=== PATIENT | male | born 1990 | race Caucasian/White ===

== ENCOUNTER 2016-11-27 10:16 | Emergency (ER) | payer MEDICAID ==
[~2016-11-27] VITALS: Ht 182.9 cm; Wt 70.0 kg
[2016-11-27 10:19] VITALS: Ht 182.9 cm; Wt 70.0 kg
[2016-11-27] MEDS ORDERED: IBUP-1542 PO (11:50)
[2016-11-27] MEDS ORDERED: CETI10CA PO (11:50)
[2016-11-27] MEDS ORDERED: D-ME473S18 PO (11:50)
--- NOTE | 2016-11-27 11:57 | ERD ---
ER Documentation Chief Complaint Date/Time DATE: 11/27/16 TIME: 11:51 Chief Complaint FLU LIKE SYMPTOMS RUNNY NOSE COUGH FEVER HPI Patient is a 26-year-old male who presents to the emergency department with rhinorrhea, dry cough, fever is 1 week. Patient states that his cough is dry in nature. Patient states that he has some chest tightness but denies any chest pain or shortness of breath. He denies taking any cough medication. Patient reports tactile fevers. He denies taking any antipyretics. He states he has been using Vicks with no relief of symptoms. Patient also has clear rhinorrhea. Patient denies any headache, body ache, abdominal pain, nausea, vomiting. No recent travel. No sick contacts. ROS All systems reviewed and are negative except as per history of present illness. Medications Home Meds Active Scripts Ibuprofen* (Motrin*) 600 Mg Tab, 600 MG PO Q6 for PAIN AND/OR INFLAMMATION, #30 TAB Prov:MUNIR MEDLEY PA-C 11/27/16 Cetirizine Hcl* (Zyrtec*) 10 Mg Capsule, 10 MG PO DAILY, #12 TAB.CHEW Prov:MUNIR MEDLEY PA-C 11/27/16 Dextromethorphan Hb-Promethazine Hcl (Promethazine DM Syrup) 473 Ml Syrup, 5 ML PO Q6H Y for COUGH, #4 OZ Prov:MUNIR MEDLEY PA-C 11/27/16 PMhx/Soc Medical and Surgical Hx: pt denies Medical Hx, pt denies Surgical Hx History of Surgery: No Anesthesia Reaction: No Hx Neurological Disorder: No Hx Respiratory Disorders: No Hx Cardiac Disorders: No Hx Psychiatric Problems: No Hx Miscellaneous Medical Probl: No Hx Alcohol Use: No Hx Substance Use: No Hx Tobacco Use: No FmHx Family History: No diabetes Physical Exam Vitals Vital Signs Date Time Temp Pulse Resp B/P Pulse Ox O2 Delivery O2 Flow Rate FiO2 11/27/16 10:19 98.8 93 18 132/65 97 Physical Exam GENERAL: Well-developed, well-nourished male. Appears in no acute distress. HEAD: Normocephalic, atraumatic. No deformities or ecchymosis. EYE: Pupils equal, round, and reactive to light. EOMs intact. No conjunctival erythema. No scleral icterus. No eye discharge. ENT: External ear without any masses or tenderness. Auditory canals clear bilaterally. TM visualized bilaterally, non-erythematous, non-bulging. Nasal mucosa pink with no discharge. Oropharynx is pink without any tonsillar erythema or exudates. No uvula deviation. No kissing tonsils. NECK: Supple. No lymphadenopathy or thyromegaly. No meningismus. Normal range of motion of the neck. LUNG: Clear to auscultation bilaterally. No rhonchi, wheezing, rales or coarse breath sounds. HEART: Regular rate and rhythm. No murmurs, rubs or gallops. EXTREMITIES: Equal pulses bilaterally. No peripheral clubbing, cyanosis or edema. No unilateral leg swelling. NEUROLOGIC: Alert and oriented to person, place and time. Moving all four extremities. 5/5 strength in all extremities. Normal speech. Steady gait. SKIN: Normal color. Warm and dry. No rashes or lesions. Procedures/MDM ED COURSE: The patient was stable throughout ED course. I kept the patient and/or family informed of laboratory and diagnostic imaging results throughout the ED course. DIAGNOSTIC IMAGING: Read by radiologist. DIAGNOSTIC IMAGING REPORT Patient: SELENA CARSON : 1990 Age: 26 Sex: M MR #: [id number] DOS: 11/27/16 1147 Ordering MD: MUNIR MEDLEY PA-C Location: [facility] Room/Bed: PROCEDURE: XR Chest. CLINICAL INDICATION: Cough for 1 week. TECHNIQUE: Single frontal view of the chest was obtained COMPARISON: No. FINDINGS: The soft tissues are normal. The bony elements are normal. The heart, left side aorta, cardiomediastinal silhouette, pulmonary vasculature and hilar structures are normal. The lungs are clear. The costophrenic angles are normal. IMPRESSION: 1. Normal chest x-ray. 2. No evidence of acute infiltrate. RPTAT:AAJJ Physician Rain Date Time Electronically viewed and signed by Physician Rain on 11/27/2016 12:25 JM/ CC: MUNIR MEDLEY PA-C MEDICAL DECISION MAKING: Patient is a 26-year-old male who presents with a dry cough, rhinorrhea and tactile fevers x1 week. Vital signs were reviewed. Patient was afebrile. Patient was not hypoxic. ENT exam was normal. Lung exam was normal. Chest x-ray was obtained. Chest x-ray was within normal limits. Given these findings, the patients presentation is most consistent with viral URI vs influenza. I have a much lower clinical concern for pneumonia, meningitis, sinusitis, otitis externa , acute otitis media, strep pharyngitis, epiglottitis or peritonsillar abscess. At this time, patient will be provided with symptomatic relief. Given the patient has had symptoms greater than 24 hours, Tamiflu will not be prescribed. PRESCRIPTIONS: Zyrtec, Promethazine cough syrup, ibuprofen DISCHARGE: At this time, patient is stable for discharge and outpatient management. Supportive therapies such as OTC throat lozenges, salt water gurgles, popsicles and jello discussed. I have instructed the patient to follow-up with his/her primary care physician in 1-2 days. I have instructed the patient to promptly return to the ER for any new or worsening symptoms including increased pain, swelling, fever, nausea, vomiting, weakness or difficulty breathing. The patient and/or family expressed understanding of and agreement with this plan. All questions were answered. Home care instructions were provided. . Departure Diagnosis: Primary Impression: Viral URI Condition: Stable Patient Instructions: Uri, Viral, No Abx (Adult) Referrals: [facility] YOU HAVE RECEIVED A MEDICAL SCREENING EXAM AND THE RESULTS INDICATE THAT YOU DO NOT HAVE A CONDITION THAT REQUIRES URGENT TREATMENT IN THE EMERGENCY DEPARTMENT. FURTHER EVALUATION AND TREATMENT OF YOUR CONDITION CAN WAIT UNTIL YOU ARE SEEN IN YOUR DOCTORS OFFICE WITHIN THE NEXT 1-2 DAYS. IT IS YOUR RESPONSIBILITY TO MAKE AN APPOINTMENT FOR FOLOW-UP CARE. IF YOU HAVE A PRIMARY DOCTOR --you should call your primary doctor and schedule an appointment IF YOU DO NOT HAVE A PRIMARY DOCTOR YOU CAN CALL OUR PHYSICIAN REFERRAL HOTLINE AT IF YOU CAN NOT AFFORD TO SEE A PHYSICIAN YOU CAN CHOSE FROM THE FOLLOWING [facility] [address] [facility]. [facility] [address] [facility] [address] [facility] [address] [facility] [address] [facility]. [facility] [address] [facility]. [facility] YOU HAVE RECEIVED A MEDICAL SCREENING EXAM AND THE RESULTS INDICATE THAT YOU DO NOT HAVE A CONDITION THAT REQUIRES URGENT TREATMENT IN THE EMERGENCY DEPARTMENT. FURTHER EVALUATION AND TREATMENT OF YOUR CONDITION CAN WAIT UNTIL YOU ARE SEEN IN YOUR DOCTORS OFFICE WITHIN THE NEXT 1-2 DAYS. IT IS YOUR RESPONSIBILITY TO MAKE AN APPOINTMENT FOR FOLOW-UP CARE. IF YOU HAVE A PRIMARY DOCTOR --you should call your primary doctor and schedule and appointment IF YOU DO NOT HAVE A PRIMARY DOCTOR YOU CAN CALL OUR PHYSICIAN REFERRAL HOTLINE AT . IF YOU CAN NOT AFFORD TO SEE A PHYSICIAN YOU CAN CHOSE FROM THE FOLLOWING [facility] INSTITUTIONS: [facility] [address] [place] [address] [facility] [address] [place] [address] [facility] [address] [place] [address] Additional Instructions: Llame al doctor MAANA y anatoliy juan BJ PARA DENTRO DE 1-2 KAMARA.Dgale a la secretaria que nosotros le instruimos hacer esta bj.Avise o llame si olivares condicin se empeora antes de la bj. Regresa aqui si peor o no mejor. MUNIR MEDLEY PA-C Nov 27, 2016 11:57
--- NOTE | 2016-11-27 12:26 | RADRPT ---
PROCEDURE: XR Chest. CLINICAL INDICATION: Cough for 1 week. TECHNIQUE: Single frontal view of the chest was obtained COMPARISON: No. FINDINGS: The soft tissues are normal. The bony elements are normal. The heart, left side aorta, cardiomedias tinal silhouette, pulmonary vasculature and hilar structures are normal. The lungs are clear. The co stophrenic angles are normal. IMPRESSION: 1. Normal chest x-ray. 2. No evidence of acute infiltrate. RPTAT:AAJJ Physician Rain Date Time Electronically viewed and signed by Micheal Fox Physician on 11/27/2016 12:25 SARA/
== END 2016-11-27 12:48 | disposition home or self-care (01) ==
LOC: FTE 10:16
DX: J06.9 Acute upper respiratory infection, unspecified (principal)
CPT/HCPCS: 71010; Z7502; 99283

== ENCOUNTER 2017-11-19 09:20 | Emergency (ER) | END 2017-11-19 11:55 | disposition home or self-care (01) ==

== ENCOUNTER 2017-11-26 08:56 | Emergency (ER) | END 2017-11-26 12:30 | disposition home or self-care (01) ==

== ENCOUNTER 2018-12-30 12:39 | Emergency (ER) | payer MEDICAID ==
[~2018-12-30] VITALS: Wt 92.7 kg
[~2018-12-30 12:39] MED LIST: ALBU18HF INHALATION; AZIT250T PO; BENZ-6 PO; CETI10CA PO; D-ME473S18 PO; FLUT16SP17 NASAL; IBUP-1542 PO; PRED20TA PO
[2018-12-30 12:44] VITALS: BP 139/64; PULSE 94; RESP 17
[2018-12-30] MEDS ORDERED: D-ME473S2 PO (14:54)
[2018-12-30] MEDS ORDERED: ALBU8.5H8 INH (14:54)
[2018-12-30] MEDS ORDERED: AZIT250T PO (14:54)
--- NOTE | 2018-12-30 14:59 | ERD ---
ER Documentation Chief Complaint Chief Complaint CONSTIPATION, RECTAL PAIN, NO BLEEDING, ALSO REPORTS COUGH HPI Patient is a Niuean-speaking 28-year-old male with history of asthma who pre sents the ED with complaints of an intermittent, productive cough and chest congestion ongoing for the past 1 month. Patient denies any known exacerbating or relieving factors. He denies any fevers. He does state his cough is worse at nighttime, and associated with nasal congestion. He reports some shortness of breath, but denies any wheezing or chest pain. He denies any fevers, chills, nausea, vomiting, abdominal pain. Contrary to triage notes as above, patient did not complain of any constipation or rectal pain during my interview. ROS All systems reviewed and are negative except as per history of present illness. Medications Home Meds Active Scripts Albuterol Sulfate* (Proair HFA*) 8.5 Gm Hfa.aer.ad, 2 PUFF INH Q4H PRN for WHEEZING AND SOB, #1 INHALER Prov:SAL EAGLEC 12/30/18 Dextromethorphan Hb-Promethazine Hcl* (Promethazine DM* Syrup) 473 Ml Syrup, 5 ML PO Q6 PRN for COUGH for 7 Days, ML Prov:SAL EAGLEC 12/30/18 Azithromycin* (Zithromax*) 250 Mg Tablet, 250 MG PO .ZPACK DIRECTED, #6 TAB TAKE 500 MG (2 TABS) THE FIRST DAY THEN 250 MG (1 TAB) DAYS 2-5 Prov:SAL EAGLEC 12/30/18 Benzonatate* (Tessalon Perle*) 100 Mg Capsule, 100 MG PO Q8H PRN for COUGH, #20 CAP Prov:MUNIR MEDLEYC 11/26/17 Azithromycin* (Zithromax*) 250 Mg Tablet, 250 MG PO .ZPACK DIRECTED, #6 TAB TAKE 500 MG (2 TABS) THE FIRST DAY THEN 250 MG (1 TAB) DAYS 2-5 Prov:MUNIR MEDLEYC 11/26/17 Cetirizine Hcl* (Zyrtec*) 10 Mg Capsule, 10 MG PO DAILY, #10 TAB.CHEW Prov:RUBIN LINARES PA-C 11/19/17 Fluticasone Propionate* (Fluticasone Propionate* Nasal) 50 Mcg/Addison - 16 Gm Addison.susp, 1 SPRAY NASAL BID, #1 BOTTLE TO EACH NOSTRIL Prov:RUBIN LINARES PA-C 11/19/17 Prednisone* (Prednisone*) 20 Mg Tab, 40 MG PO DAILY for 4 Days, TAB Prov:RUBIN LINARES PA-C 11/19/17 Albuterol Sulfate* (Ventolin HFA*) 18 Gm Hfa.aer.ad, 2 PUFF INHALATION Q4H, #1 INHALER Prov:RUBIN LINARES PA-C 11/19/17 Ibuprofen* (Motrin*) 600 Mg Tab, 600 MG PO Q6 for PAIN AND/OR INFLAMMATION, #30 TAB Prov:MUNIR MEDLEY PA-C 11/27/16 Cetirizine Hcl* (Zyrtec*) 10 Mg Capsule, 10 MG PO DAILY, #12 TAB.CHEW Prov:MUNIR MEDLEY PA-C 11/27/16 Dextromethorphan Hb-Promethazine Hcl (Promethazine DM Syrup) 473 Ml Syrup, 5 ML PO Q6H PRN for COUGH, #4 OZ Prov:MUNIR MEDLEY PA-C 11/27/16 Allergies Allergies: Coded Allergies: No Known Allergy (Unverified , 11/19/17) PMhx/Soc Medical and Surgical Hx: pt denies Medical Hx, pt denies Surgical Hx History of Surgery: No Anesthesia Reaction: No Hx Neurological Disorder: No Hx Respiratory Disorders: Yes (Asthma) Hx Cardiac Disorders: No Hx Psychiatric Problems: No Hx Miscellaneous Medical Probl: No Hx Alcohol Use: No Hx Substance Use: No Hx Tobacco Use: No Smoking Status: Never smoker Physical Exam Vitals Vital Signs Date Temp Pulse Resp B/P (MAP) Pulse Ox O2 O2 Flow FiO2 Time Delivery Rate 12/30/18 98.6 94 17 139/64 99 12:44 (89) Physical Exam Const: No acute distress Head: Atraumatic Eyes: Normal Conjunctiva ENT: Normal External Ears, Nose and Mouth. Neck: Full range of motion. No meningismus. Resp: Clear to auscultation bilaterally. No wheezes, rhonchi, rales. Cardio: Regular rate and rhythm, no murmurs Abd: Soft, non tender, non distended. Normal bowel sounds Skin: No petechiae or rashes Back: No midline or flank tenderness Ext: No cyanosis, or edema Neur: Awake and alert Psych: Normal Mood and Affect Procedures/MDM EMERGENT LABS AND DIAGNOSTIC STUDIES: Radiology Results as interpreted by Radiology: PROCEDURE: XR Chest. CLINICAL INDICATION: Cough TECHNIQUE: Single frontal view of the chest was obtained COMPARISON: 11/27/2016 FINDINGS: The heart and mediastinum are within normal limits. The lungs are clear. There is no pleural effusion or pneumothorax. RPTAT: AA IMPRESSION: No acute disease. .Alfred Villalta MD, MD Date Time Electronically viewed and signed by .Alfred Villalta MD, on 12/30/2018 14:34 Nursing Notes Reviewed. Previous Medical Records requested via the Electronic Health Record. EMERGENCY DEPARTMENT COURSE / MEDICAL DECISION MAKIN28 year old with hx of asthma presents with intermittent cough x 1 month. He is afebrile here and vital signs are stable. He has no signs of hypoxia or respiratory distress. Lungs sounds are clear. CXR negative for PNA or any other infiltrative process. Given duration of symptoms, will treat as bacterial bronchitis. He was given a prescription for Azithromax, ProAir and Promethazine DM. Pt is to follow up with his PCP in 2 days, otherwise return to the ED for any new or worsening pain. An spanish medical interpreter was used during his visit and pt understands and verbalizes understanding of my plan. Prior to discharge, patients vital signs have been reviewed SPECIALIST FOLLOW UP RECOMMENDED: None Patient has been advised to follow up with primary care in 1-2 days. Patient's blood pressure was elevated (>120/80) but appears stable without evidence of hypertension emergency or urgency. The patient was counseled about the risks of hypertension and urged to pursue outpatient monitoring and therapy within a week with their primary care physician Departure Diagnosis: Primary Impression: Cough Additional Impression: Bronchitis Condition: Stable Patient Instructions: Bronchitis, Antiobiotic Treatment (Adult) [facility] Usted se rose hecho un examen mdico de control que le indica que no est en juan condicin que requiera tratamiento urgente en el Departamento de Emergencia. Un estudio ms profundo y el tratamiento de olivares condicin pueden esperar sin ningn riesgo hasta que usted sea atendida/o en el consultorio de olivares mdico o juan clnica. Es responsabilidad suya arreglar juan carito para el seguimiento del vishnu. MANEJO DE CONDICIONES NO URGENTES EN EL FUTURO 1) Si usted tiene un mdico de atencin primaria: Usted debera llamar a olivares mdico de atencin primaria antes de venir al departamento de emergencia. Despus de las horas de consultorio, olivares doctor o olivares asociado/a est disponible por telfono. El mdico o enfermero de elvis en el servicio telefnico puede asesorarle por shalonda medio para atender el problema, o vishnu contrario se puede programar juan carito. 2) Si usted no tiene un mdico de atencin primaria: Llame al mdico o clnica de referencia que aparece abajo abisai las horas de consultorio para hacer juan carito para que le vean. CLINICAS: [facility] 762 [phone] [address] [facility] 762 [phone] [address] [facility] [phone] [address] [place] [id number] [phone] [facility] [phone] [address] [facility] [phone] [address] Additional Instructions: Thank you very much for allowing us to participate in your care. Your health and safety is our top priority at [facility]. Call your primary care doctor TOMORROW for an appointment during the next 2-4 days and bring all the information and medications prescribed. If the symptoms get worse and your provider is unavailable, return to the Emergency Department immediately. SAL EAGLE PA-C Dec 30, 2018 14:59
== END 2018-12-30 15:39 | disposition home or self-care (01) ==
LOC: FTE 12:39
DX: J40 Bronchitis, not specified as acute or chronic (principal)
CPT/HCPCS: 71045; Z7502

== ENCOUNTER 2019-03-13 10:26 | Emergency (ER) | payer MEDICAID ==
[~2019-03-13] VITALS: Ht 175.3 cm; Wt 90.9 kg
[~2019-03-13 10:26] MED LIST changes: +ALBU8.5H8 INH; +D-ME473S2 PO
[2019-03-13 10:53] VITALS: BP 130/81; PULSE 64; RESP 16; Ht 175.3 cm; Wt 90.9 kg
[2019-03-13] MEDS ORDERED: AZIT500T3 PO (11:45)
[2019-03-13] MEDS ORDERED: IBUP-1542 PO (11:45)
[2019-03-13] MEDS ORDERED: LORA10TA3 PO (11:45)
[2019-03-13] MEDS ORDERED: OXYC-279 PO (11:45)
[2019-03-13] MEDS ORDERED: IBUPROFEN 600 MG TAB PO ONE (12:00)
[2019-03-13] MEDS ORDERED: OXYCODONE/ACETAMINOPHEN (5/325) TAB PO ONE (12:00)
[2019-03-13] MEDS ORDERED: PENICILLIN G BENZ 1.2 MIL UNIT SYG IM ONE (12:00)
--- NOTE | 2019-03-13 12:31 | ERD ---
ER Documentation Chief Complaint Chief Complaint c/o sore throat for a couple of days HPI 28-year-old man complains of sore throat, nasal congestion, rhinorrhea, cough, tactile fever x4 to 5 days. Patient denies abdominal pain, no chest pain, no changes in his voice, no complaints of vomiting or diarrhea, no rash, no recent antibiotic use or recent travel ROS All systems reviewed and are negative except as per history of present illness. Medications Home Meds Active Scripts Loratadine* (Loratadine*) 10 Mg Tablet, 10 MG PO DAILY PRN for NASAL CONGESTION, #15 TAB Prov:JUSTINE HIGGINS MD 03/13/19 Azithromycin* (Zithromax*) 500 Mg Tablet, 500 MG PO DAILY for 5 Days, TAB Prov:JUSTINE HIGGINS MD 03/13/19 Ibuprofen* (Motrin*) 600 Mg Tab, 600 MG PO Q8 PRN for PAIN AND/OR INFLAMMATION, #30 TAB Prov:JUSTINE HIGGINS MD 03/13/19 Oxycodone HCl/Acetaminophen (Percocet 5-325 mg Tablet) 1 Each Tablet, 1 EACH PO TID PRN for PAIN LEVEL 6-10, #9 TAB Prov:JUSTINE HIGGINS MD 03/13/19 Albuterol Sulfate* (Proair HFA*) 8.5 Gm Hfa.aer.ad, 2 PUFF INH Q4H PRN for WHEEZING AND SOB, #1 INHALER Prov:SAL EAGLE-C 12/30/18 Dextromethorphan Hb-Promethazine Hcl* (Promethazine DM* Syrup) 473 Ml Syrup, 5 ML PO Q6 PRN for COUGH for 7 Days, ML Prov:SAL EAGLE PA-C 12/30/18 Azithromycin* (Zithromax*) 250 Mg Tablet, 250 MG PO .ZPACK DIRECTED, #6 TAB TAKE 500 MG (2 TABS) THE FIRST DAY THEN 250 MG (1 TAB) DAYS 2-5 Prov:SAL EAGLE-C 12/30/18 Benzonatate* (Tessalon Perle*) 100 Mg Capsule, 100 MG PO Q8H PRN for COUGH, #20 CAP Prov:MUNIR MEDLEY-C 11/26/17 Azithromycin* (Zithromax*) 250 Mg Tablet, 250 MG PO .ZPACK DIRECTED, #6 TAB TAKE 500 MG (2 TABS) THE FIRST DAY THEN 250 MG (1 TAB) DAYS 2-5 Prov:MUNIR MEDLEY PA-C 11/26/17 Cetirizine Hcl* (Zyrtec*) 10 Mg Capsule, 10 MG PO DAILY, #10 TAB.CHEW Prov:RUBIN LINARES PA-C 11/19/17 Fluticasone Propionate* (Fluticasone Propionate* Nasal) 50 Mcg/Lawton - 16 Gm [place].susp, 1 SPRAY NASAL BID, #1 BOTTLE TO EACH NOSTRIL Prov:RUBIN LINARES PA-C 11/19/17 Prednisone* (Prednisone*) 20 Mg Tab, 40 MG PO DAILY for 4 Days, TAB Prov:RUBIN LINARES PA-C 11/19/17 Albuterol Sulfate* (Ventolin HFA*) 18 Gm Hfa.aer.ad, 2 PUFF INHALATION Q4H, #1 INHALER Prov:RUBIN LINARES PA-C 11/19/17 Ibuprofen* (Motrin*) 600 Mg Tab, 600 MG PO Q6 for PAIN AND/OR INFLAMMATION, #30 TAB Prov:MUNIR MEDLEY PA-C 11/27/16 Cetirizine Hcl* (Zyrtec*) 10 Mg Capsule, 10 MG PO DAILY, #12 TAB.CHEW Prov:MUNIR MEDLEY PA-C 11/27/16 Dextromethorphan Hb-Promethazine Hcl (Promethazine DM Syrup) 473 Ml Syrup, 5 ML PO Q6H PRN for COUGH, #4 OZ Prov:MUNIR MEDLEY PA-C 11/27/16 Allergies Allergies: Coded Allergies: No Known Allergy (Unverified , 11/19/17) PMhx/Soc History of Surgery: No Anesthesia Reaction: No Hx Neurological Disorder: No Hx Respiratory Disorders: Yes (Asthma) Hx Cardiac Disorders: No Hx Psychiatric Problems: No Hx Miscellaneous Medical Probl: No Hx Alcohol Use: No Hx Substance Use: No Hx Tobacco Use: No Smoking Status: Never smoker FmHx Family History: No diabetes Physical Exam Vitals Vital Signs Date Temp Pulse Resp B/P (MAP) Pulse Ox O2 O2 Flow FiO2 Time Delivery Rate 03/13/19 99.4 64 16 130/81 96 10:53 (97) Physical Exam GENERAL: Well-developed, well-nourished, appears congested, febrile HEENT: Moist mucous membranes, pink conjunctiva, no cervical spine tenderness or step-off deformities, no goiter, no jaundice or icterus, positive nasal congestion and rhinorrhea with pharyngeal erythema bilaterally and exudates, uvula midline NEURO: Alert and oriented 3, cranial nerves II through XII intact bilaterally, pupils equal round reactive to light, no focal deficits or facial asymmetry, sensation intact distally Strength 5/5 in upper and lower extremities bilaterally CARDIAC: Regular rate and rhythm, no murmurs rubs or gallops LUNGS: Clear bilaterally no wheezing crackles or stridor Results 24 hrs Current Medications Medications Dose Sig/Minnie Start Time Status Last (Trade) Ordered Route PRN Stop Time Admin Dose Reason Admin Penicillin 1,200,000 ONCE ONCE 03/13/19 DC 03/13/19 G units IM 12:00 12:04 Benzathine 03/13/19 12:01 (Bicillin La) Ibuprofen 600 mg ONCE ONCE 03/13/19 DC 03/13/19 (Motrin) PO 12:00 12:04 03/13/19 12:01 Oxycodone/ 1 tab ONCE ONCE 03/13/19 DC 03/13/19 Acetaminophen PO 12:00 12:04 (Percocet 03/13/19 12:01 (5/ 325)) Procedures/MDM I suspect active strep pharyngitis and URI, I treated him here with penicillin G 1,200,000 units IM, ibuprofen 600 mg p.o., Percocet 1 tablet p.o. Differential diagnoses considered, included but not limited to acute coronary syndrome, pulmonary embolism, aortic dissection, abdominal aortic aneurysm, sepsis, stroke, meningitis, encephalitis, pneumonia, appendicitis, cholecystitis, bowel obstruction, pyelonephritis, nephrolithiasis, cystitis, as well as metabolic, hematologic, and electrolyte abnormalities. As well as abscess, cellulitis, fractures, and dislocations. Patient feels much better at this time, and vital signs are normal, symptoms have improved. I did give strict instructions to return to the ED if symptoms co ntinue or worsen, patient will otherwise follow-up with primary care physician. Patient understood instructions and agreed to plan. Disclaimer: Inadvertent spelling and grammatical errors are likely due to EHR/dictation software use and do not reflect on the overall quality of patient care. Also, please note that the electronic time recorded on this note does not necessarily reflect the actual time of the patient encounter. Departure Diagnosis: Primary Impression: Acute bronchitis Bronchitis organism: unspecified organism Qualified Codes: J20.9 - Acute bronchitis, unspecified Additional Impression: Strep pharyngitis Condition: Good Patient Instructions: Strep Throat, Bronchitis, Antiobiotic Treatment (Adult) JUSTINE HIGGINS MD March 13, 2019 12:31
== END 2019-03-13 12:17 | disposition home or self-care (01) ==
LOC: FTE 10:26
DX: J20.9 Acute bronchitis, unspecified (principal); J02.0 Streptococcal pharyngitis; J45.909 Unspecified asthma, uncomplicated
CPT/HCPCS: J0561; Z7502; Z7610; 99283

== ENCOUNTER 2019-04-03 10:14 | Emergency (ER) | payer MEDICAID ==
[~2019-04-03] VITALS: Ht 188 cm; Wt 90.5 kg
[~2019-04-03 10:14] MED LIST changes: +AZIT500T3 PO; +LORA10TA3 PO; +OXYC-279 PO
[2019-04-03 10:23] VITALS: Ht 188 cm; Wt 90.5 kg
[2019-04-03] MEDS ORDERED: IBUP800T48 PO (12:03)
[2019-04-03 12:11] VITALS: BP 115/74; PULSE 75; RESP 20
[2019-04-03] MEDS ORDERED: IBUPROFEN 800 MG TAB PO ONE (12:30)
--- NOTE | 2019-04-03 13:45 | ERD ---
ER Documentation Chief Complaint Chief Complaint RT finger pain after injury HPI 28-year-old male presenting with pain to his left fourth digit. Patient states that he hit his distal tip of the finger with a hammer. [id number]. Denies other medical problems. NKDA. Surgical history denies. Social history denies ROS All systems reviewed and are negative except as per history of present illness. Medications Home Meds Active Scripts Ibuprofen* (Motrin*) 800 Mg Tab, 800 MG PO Q6, #30 TAB Prov:FRANCY KEBEDE PA-C 04/03/19 Loratadine* (Loratadine*) 10 Mg Tablet, 10 MG PO DAILY PRN for NASAL CONGESTION, #15 TAB Prov:JUSTINE HIGGINS MD 03/13/19 Azithromycin* (Zithromax*) 500 Mg Tablet, 500 MG PO DAILY for 5 Days, TAB Prov:JUSTINE HIGGINS MD 03/13/19 Ibuprofen* (Motrin*) 600 Mg Tab, 600 MG PO Q8 PRN for PAIN AND/OR INFLAMMATION, #30 TAB Prov:JUSTINE HIGGINS MD 03/13/19 Oxycodone HCl/Acetaminophen (Percocet 5-325 mg Tablet) 1 Each Tablet, 1 EACH PO TID PRN for PAIN LEVEL 6-10, #9 TAB Prov:JUSTINE HIGGINS MD 03/13/19 Albuterol Sulfate* (Proair HFA*) 8.5 Gm Hfa.aer.ad, 2 PUFF INH Q4H PRN for WHEEZING AND SOB, #1 INHALER Prov:SAL EAGLEC 12/30/18 Dextromethorphan Hb-Promethazine Hcl* (Promethazine DM* Syrup) 473 Ml Syrup, 5 ML PO Q6 PRN for COUGH for 7 Days, ML Prov:SAL EAGLEC 12/30/18 Azithromycin* (Zithromax*) 250 Mg Tablet, 250 MG PO .ZPACK DIRECTED, #6 TAB TAKE 500 MG (2 TABS) THE FIRST DAY THEN 250 MG (1 TAB) DAYS 2-5 Prov:SAL EAGLEC 12/30/18 Benzonatate* (Tessalon Perle*) 100 Mg Capsule, 100 MG PO Q8H PRN for COUGH, #20 CAP Prov:MUNIR MEDLEY PA-C 11/26/17 Azithromycin* (Zithromax*) 250 Mg Tablet, 250 MG PO .ZPACK DIRECTED, #6 TAB TAKE 500 MG (2 TABS) THE FIRST DAY THEN 250 MG (1 TAB) DAYS 2-5 Prov:MUNIR MEDLEY PA-C 11/26/17 Cetirizine Hcl* (Zyrtec*) 10 Mg Capsule, 10 MG PO DAILY, #10 TAB.CHEW Prov:RUBIN LINARES PA-C 11/19/17 Fluticasone Propionate* (Fluticasone Propionate* Nasal) 50 Mcg/Jackson - 16 Gm Jackson.susp, 1 SPRAY NASAL BID, #1 BOTTLE TO EACH NOSTRIL Prov:RUBIN LINARES PA-C 11/19/17 Prednisone* (Prednisone*) 20 Mg Tab, 40 MG PO DAILY for 4 Days, TAB Prov:RUBIN LINARES PA-C 11/19/17 Albuterol Sulfate* (Ventolin HFA*) 18 Gm Hfa.aer.ad, 2 PUFF INHALATION Q4H, #1 INHALER Prov:RUBIN LINARES PA-C 11/19/17 Ibuprofen* (Motrin*) 600 Mg Tab, 600 MG PO Q6 for PAIN AND/OR INFLAMMATION, #30 TAB Prov:MUNIR MEDLEY PA-C 11/27/16 Cetirizine Hcl* (Zyrtec*) 10 Mg Capsule, 10 MG PO DAILY, #12 TAB.CHEW Prov:MUNIR MEDLEY PA-C 11/27/16 Dextromethorphan Hb-Promethazine Hcl (Promethazine DM Syrup) 473 Ml Syrup, 5 ML PO Q6H PRN for COUGH, #4 OZ Prov:MUNIR MEDLEY PA-C 11/27/16 Allergies Allergies: Coded Allergies: No Known Allergy (Unverified , 11/19/17) PMhx/Soc Medical and Surgical Hx: pt denies Medical Hx, pt denies Surgical Hx History of Surgery: No Anesthesia Reaction: No Hx Neurological Disorder: No Hx Respiratory Disorders: Yes (Asthma) Hx Cardiac Disorders: No Hx Psychiatric Problems: No Hx Miscellaneous Medical Probl: No Hx Alcohol Use: No Hx Substance Use: No Hx Tobacco Use: No Smoking Status: Never smoker FmHx Family History: No diabetes, No coronary disease, No other Physical Exam Vitals Vital Signs Date Temp Pulse Resp B/P (MAP) Pulse Ox O2 O2 Flow FiO2 Time Delivery Rate 04/03/19 98.0 75 20 115/74 99 Room Air 12:11 (88) 04/03/19 97.7 88 8 121/70 97 10:23 (87) Physical Exam GENERAL: The patient is well-appearing, well-nourished, in no acute distress CHEST: Clear to auscultation bilaterally. There are no rales, wheezes or rhonchi. HEART: Regular rate and rhythm. No murmurs, clicks, rubs or gallops. EXTREMITIES: Equal pulses bilaterally. There is no peripheral clubbing, cyanosis or edema. No focal swelling or erythema. Full range of motion. Grossly neurovascularly intact. NEUROLOGIC: Motor strength in all 4 extremities with 5 out of 5 strength. Sensation grossly intact. SKIN: Hematoma noted under the left nail. No laceration or abrasion noted of the finger. Results 24 hrs Current Medications Medications Dose Sig/Minnie Start Time Status Last (Trade) Ordered Route PRN Stop Time Admin Dose Reason Admin Ibuprofen 800 mg ONCE ONCE 04/03/19 DC 04/03/19 (Motrin) PO 12:30 12:11 04/03/19 12:30 Procedures/MDM DIAGNOSTIC IMAGING REPORT Patient: SELENA MICHELE : 1990 Age: 28 Sex: M MR #: [id number] DOS: 04/03/19 1044 Ordering MD: MELISSA KEBEDE PA-C Location: [facility] Room/Bed: PROCEDURE: XR left fourth digit CLINICAL INDICATION: Pain TECHNIQUE: AP, oblique and lateral views of the left fourth digit were obtained. COMPARISON: No prior studies are available for comparison. FINDINGS: There is no acute fracture in the fourth digit. There is a possible old fracture of the tip of the fifth digit. The joint spaces are preserved. Bone mineralization is normal. No significant soft tissue swelling is seen. RPTAT: AA IMPRESSION: No acute fracture or subluxation. Possible old fracture of the tip of the fifth digit. ER Course: Trepanation performed in the ED. Site reclean them bandage applied. MDM: 28-year-old male presenting with pain to the left ring finger. I have low suspicion for acute fracture dislocation. I have low suspicion for tendon or ligament rupture. Low suspicion for neuro deficit. Patient is discharged with strict ER precautions and told to follow-up with primary care within 1 to 2 days for close evaluation. All questions answered at discharge Departure Diagnosis: Primary Impression: Finger injury Condition: Stable Patient Instructions: Subungual Hematoma, Crush Injury, Hand/Finger Referrals: [facility] YOU HAVE RECEIVED A MEDICAL SCREENING EXAM AND THE RESULTS INDICATE THAT YOU DO NOT HAVE A CONDITION THAT REQUIRES URGENT TREATMENT IN THE EMERGENCY DEPARTMENT. FURTHER EVALUATION AND TREATMENT OF YOUR CONDITION CAN WAIT UNTIL YOU ARE SEEN IN YOUR DOCTORS OFFICE WITHIN THE NEXT 1-2 DAYS. IT IS YOUR RESPONSIBILITY TO MAKE AN APPOINTMENT FOR FOLOW-UP CARE. IF YOU HAVE A PRIMARY DOCTOR --you should call your primary doctor and schedule an appointment IF YOU DO NOT HAVE A PRIMARY DOCTOR YOU CAN CALL OUR PHYSICIAN REFERRAL HOTLINE AT IF YOU CAN NOT AFFORD TO SEE A PHYSICIAN YOU CAN CHOSE FROM THE FOLLOWING [facility] [address] [facility] [address] [facility] [facility] [address] [facility] [address] [facility] [address] [facility] [facility]. [address] Additional Instructions: FOLLOW UP WITH YOUR PRIMARY CARE PHYSICIAN TOMORROW.Return to this facility if you are not improving as expected. FRANCY KEBEDE PA-C Apr 03, 2019 13:43
== END 2019-04-03 12:12 | disposition home or self-care (01) ==
LOC: FTE 10:14
DX: S60.142A Contusion of left ring finger with damage to nail, initial encounter (principal); J45.909 Unspecified asthma, uncomplicated; W27.0XXA Contact with workbench tool, initial encounter; Y92.9 Unspecified place or not applicable
CPT/HCPCS: 73140; Z7502; Z7610; 99282

== ENCOUNTER 2019-05-09 02:43 | Emergency (ER) | payer MEDICAID ==
[~2019-05-09] VITALS: Ht 182.9 cm; Wt 89.9 kg
[~2019-05-09 02:43] MED LIST changes: +IBUP800T48 PO
[2019-05-09 02:46] VITALS: Ht 182.9 cm; Wt 89.9 kg
[2019-05-09] MEDS ORDERED: MED4DP PO (03:14)
[2019-05-09] MEDS ORDERED: FLUT9.9S NASAL (03:14)
[2019-05-09] MEDS ORDERED: AZIT250T PO (03:14)
[2019-05-09] MEDS ORDERED: BENZ200C68 PO (03:14)
[2019-05-09] MEDS ORDERED: IBUP-1542 PO (03:14)
[2019-05-09 03:54] VITALS: BP 118/74; PULSE 74; RESP 18
--- NOTE | 2019-05-09 05:02 | ERD ---
ER Documentation Chief Complaint Chief Complaint cough x 2 months HPI 28-year-old male presents to the emergency department complaining of moderate severity nasal congestion and cough for the past 1 month. Symptoms are intermittent. He denies any fevers, chills, or other symptoms at this time. He took [id number] medication without significant relief. ROS All systems reviewed and are negative except as per history of present illness. Medications Home Meds Active Scripts Ibuprofen* (Motrin*) 600 Mg Tab, 600 MG PO Q6, #30 TAB Prov:EARNEST RYAN PA-C 05/09/19 Methylprednisolone* (Medrol* DOSE PACK) 4 Mg/Dose-Pack Tab.ds.pk, 4 MG PO . DIRECTED, #1 PACKET Prov:EARNEST RYAN PA-C 05/09/19 Fluticasone Propionate (Flonase Allergy Relief) 9.9 Ml Harvel.susp, 1 SPRAY NASAL BID, #1 BOTTLE TO EACH NOSTRIL Prov:EARNEST RYAN PA-C 05/09/19 Benzonatate* (Benzonatate*) 200 Mg Capsule, 200 MG PO TID PRN for COUGH, #15 CAP Prov:EARNEST RYAN PA-C 05/09/19 Azithromycin* (Zithromax*) 250 Mg Tablet, 250 MG PO .JosephPACK DIRECTED, #6 TAB TAKE 500 MG (2 TABS) THE FIRST DAY THEN 250 MG (1 TAB) DAYS 2-5 Prov:EARNEST RYAN PA-C 05/09/19 Ibuprofen* (Motrin*) 800 Mg Tab, 800 MG PO Q6, #30 TAB Prov:FRANCY KEBEDE PA-C 04/03/19 Loratadine* (Loratadine*) 10 Mg Tablet, 10 MG PO DAILY PRN for NASAL CONGESTION, #15 TAB Prov:JUSTINE HIGGINS MD 03/13/19 Azithromycin* (Zithromax*) 500 Mg Tablet, 500 MG PO DAILY for 5 Days, TAB Prov:JUSTINE HIGGINS MD 03/13/19 Ibuprofen* (Motrin*) 600 Mg Tab, 600 MG PO Q8 PRN for PAIN AND/OR INFLAMMATION, #30 TAB Prov:JUSTINE HIGGINS MD 03/13/19 Oxycodone HCl/Acetaminophen (Percocet 5-325 mg Tablet) 1 Each Tablet, 1 EACH PO TID PRN for PAIN LEVEL 6-10, #9 TAB Prov:JUSTINE HIGGINS MD 03/13/19 Albuterol Sulfate* (Proair HFA*) 8.5 Gm Hfa.aer.ad, 2 PUFF INH Q4H PRN for WHEEZING AND SOB, #1 INHALER Prov:SAL EAGLEC 12/30/18 Dextromethorphan Hb-Promethazine Hcl* (Promethazine DM* Syrup) 473 Ml Syrup, 5 ML PO Q6 PRN for COUGH for 7 Days, ML Prov:SAL EAGLE PA-C 12/30/18 Azithromycin* (Zithromax*) 250 Mg Tablet, 250 MG PO .ZPACONNIE DIRECTED, #6 TAB TAKE 500 MG (2 TABS) THE FIRST DAY THEN 250 MG (1 TAB) DAYS 2-5 Prov:SAL EAGLE PA-C 12/30/18 Benzonatate* (Tessalon Perle*) 100 Mg Capsule, 100 MG PO Q8H PRN for COUGH, #20 CAP Prov:MUNIR MEDLEY PA-C 11/26/17 Azithromycin* (Zithromax*) 250 Mg Tablet, 250 MG PO .ZPACONNIE DIRECTED, #6 TAB TAKE 500 MG (2 TABS) THE FIRST DAY THEN 250 MG (1 TAB) DAYS 2-5 Prov:MUNIR MEDLEY PA-C 11/26/17 Cetirizine Hcl* (Zyrtec*) 10 Mg Capsule, 10 MG PO DAILY, #10 TAB.CHEW Prov:RUBIN LINARES PA-C 11/19/17 Fluticasone Propionate* (Fluticasone Propionate* Nasal) 50 Mcg/Harvel - 16 Gm Harvel.susp, 1 SPRAY NASAL BID, #1 BOTTLE TO EACH NOSTRIL Prov:RUBIN LINARES PA-C 11/19/17 Prednisone* (Prednisone*) 20 Mg Tab, 40 MG PO DAILY for 4 Days, TAB Prov:RUBIN LINARES PA-C 11/19/17 Albuterol Sulfate* (Ventolin HFA*) 18 Gm Hfa.aer.ad, 2 PUFF INHALATION Q4H, #1 INHALER Prov:RUBIN LINARES PA-C 11/19/17 Ibuprofen* (Motrin*) 600 Mg Tab, 600 MG PO Q6 for PAIN AND/OR INFLAMMATION, #30 TAB Prov:MUNIR MEDLEY PA-C 11/27/16 Cetirizine Hcl* (Zyrtec*) 10 Mg Capsule, 10 MG PO DAILY, #12 TAB.CHEW Prov:MUNIR MEDLEY PA-C 11/27/16 Dextromethorphan Hb-Promethazine Hcl (Promethazine DM Syrup) 473 Ml Syrup, 5 ML PO Q6H PRN for COUGH, #4 OZ Prov:JASMYNEMUNIR PA-C 11/27/16 Allergies Allergies: Coded Allergies: No Known Allergy (Unverified , 11/19/17) PMhx/Soc Medical and Surgical Hx: pt denies Surgical Hx History of Surgery: No Anesthesia Reaction: No Hx Neurological Disorder: No Hx Respiratory Disorders: Yes (Asthma) Hx Cardiac Disorders: No Hx Psychiatric Problems: No Hx Miscellaneous Medical Probl: No Hx Alcohol Use: No Hx Substance Use: No Hx Tobacco Use: No Smoking Status: Never smoker FmHx Family History: No diabetes Physical Exam Vitals Vital Signs Date Temp Pulse Resp B/P (MAP) Pulse Ox O2 O2 Flow FiO2 Time Delivery Rate 05/09/19 98.4 74 18 118/74 98 03:54 (89) 05/09/19 97.9 86 18 155/75 96 02:46 (101) Physical Exam Const: No acute distress Head: Atraumatic Eyes: Normal Conjunctiva ENT: Normal External Ears, Nose and Mouth. Nares are congested. Tenderness palpation of the maxillary sinuses bilaterally. Neck: Full range of motion. No meningismus. Resp: Clear to auscultation bilaterally Cardio: Regular rate and rhythm, no murmurs Skin: No petechiae or rashes Back: No midline or flank tenderness Ext: No cyanosis, or edema Neur: Awake and alert Psych: Normal Mood and Affect Procedures/MDM 28-year-old male presents to the emergency department with signs and symptoms most consistent with acute sinusitis and acute bronchitis with possible bacterial etiology. No evidence of serious bacterial infection, meningitis, sepsis, or other emergencies. Patient will be discharged home with prescrip tions to treat his symptoms as an outpatient. He was advised to have 24 to 48- hour follow-up with his primary care physician and return here immediately for any new or worsening or concerning symptoms. All questions answered at discharge. Patient's blood pressure was elevated (>120/80) but appears stable without evidence of hypertension emergency or urgency. The patient is to f ollow-up and pursue outpatient monitoring and therapy with their primary care physician within 1 week and return immediately if they have any new, worsening, or concerning symptoms. Departure Diagnosis: Primary Impression: Sinusitis Condition: Fair Patient Instructions: Sinusitis, Abx Tx Referrals: [facility] YOU HAVE RECEIVED A MEDICAL SCREENING EXAM AND THE RESULTS INDICATE THAT YOU DO NOT HAVE A CONDITION THAT REQUIRES URGENT TREATMENT IN THE EMERGENCY DEPARTMENT. FURTHER EVALUATION AND TREATMENT OF YOUR CONDITION CAN WAIT UNTIL YOU ARE SEEN IN YOUR DOCTORS OFFICE WITHIN THE NEXT 1-2 DAYS. IT IS YOUR RESPONSIBILITY TO MAKE AN APPOINTMENT FOR FOLOW-UP CARE. IF YOU HAVE A PRIMARY DOCTOR --you should call your primary doctor and schedule an appointment IF YOU DO NOT HAVE A PRIMARY DOCTOR YOU CAN CALL OUR PHYSICIAN REFERRAL HOTLINE AT IF YOU CAN NOT AFFORD TO SEE A PHYSICIAN YOU CAN CHOSE FROM THE FOLLOWING [facility] [address] [facility] [address] [facility] [facility]. [facility] [address] [facility]. [facility] [address] [facility] [facility] [address] [facility]. [facility]. [address] Additional Instructions: Llame al doctor MAANA y antaoliy juan BJ PARA DENTRO DE 1-2 KAMARA.Dgale a la secretaria que nosotros le instruimos hacer esta bj.Avise o llame si olivares condicin se empeora antes de la bj. Regresa aqui si peor o no mejor. EARNEST RYAN PA-C May 09, 2019 05:02
== END 2019-05-09 03:55 | disposition home or self-care (01) ==
LOC: FTE 02:43
DX: J01.90 Acute sinusitis, unspecified (principal); J45.909 Unspecified asthma, uncomplicated
CPT/HCPCS: 99283

== ENCOUNTER 2019-08-20 18:42 | Emergency (ER) | payer MEDICAID ==
[~2019-08-20] VITALS: Ht 188 cm; Wt 91.6 kg
[~2019-08-20 18:42] MED LIST changes: +ACET500C5 PO; +BENZ200C68 PO; +FLUT9.9S NASAL; +MED4DP PO
[2019-08-20 19:10] VITALS: BP 127/60; PULSE 83; RESP 16; Ht 188 cm; Wt 91.6 kg
== END 2019-08-20 19:16 | disposition home or self-care (01) ==
LOC: FTE 18:42 → E/R 19:16
DX: R05 Cough (principal); J45.909 Unspecified asthma, uncomplicated
CPT/HCPCS: 99283